=== PATIENT | male | born 1970 | race Caucasian/White ===

== ENCOUNTER 2018-04-18 13:42 | Emergency (ER) | payer OTHER ==
[~2018-04-18] VITALS: Ht 175.3 cm; Wt 79.4 kg
[~2018-04-18 13:42] MED LIST: AMOX1TAB12 PO; BUCALSEP SPRAY30 ML MM; GILTUSS LIQUID237 M1; TUSSI-PRES LIQ118 ML PO; [UNRECOGNIZED DRUG - OTHER]
== END 2018-04-18 16:18 | disposition home or self-care (01) ==
LOC: ER 13:42
DX: S05.12XA Contusion of eyeball and orbital tissues, left eye, initial encounter (principal); S01.112A Laceration without foreign body of left eyelid and periocular area, initial encounter; W18.39XA Other fall on same level, initial encounter; Y93.89 Activity, other specified; Y92.098 Other place in other non-institutional residence as the place of occurrence of the external cause; Y99.8 Other external cause status

== ENCOUNTER 2018-04-22 09:07 | Emergency (ER) | payer OTHER ==
[~2018-04-22] VITALS: Ht 172.7 cm; Wt 64.9 kg
== END 2018-04-22 11:59 | disposition home or self-care (01) ==
LOC: ER 09:07
DX: S05.12XA Contusion of eyeball and orbital tissues, left eye, initial encounter (principal); W22.8XXA Striking against or struck by other objects, initial encounter; Y93.89 Activity, other specified; Y92.89 Other specified places as the place of occurrence of the external cause; Y99.8 Other external cause status

== ENCOUNTER 2019-01-09 07:45 | Emergency (ER) | payer OTHER ==
[~2019-01-09] VITALS: Ht 180.3 cm; Wt 90.7 kg
== END 2019-01-09 11:07 | disposition home or self-care (01) ==
LOC: ER 07:45
DX: S29.012A Strain of muscle and tendon of back wall of thorax, initial encounter (principal); X50.0XXA Overexertion from strenuous movement or load, initial encounter; Y93.89 Activity, other specified; Y92.89 Other specified places as the place of occurrence of the external cause; Y99.8 Other external cause status

== ENCOUNTER 2019-03-03 00:21 | Emergency (ER) | payer OTHER ==
[~2019-03-03] VITALS: Ht 165.1 cm; Wt 54.4 kg
[2019-03-03] MEDS ORDERED: CLONAZEPAM0.5 MG PO (02:17)
[2019-03-03] MEDS ORDERED: PEDIALYTE1000 ML (02:39)
== END 2019-03-03 02:58 | disposition home or self-care (01) ==
LOC: ER 00:21
DX: F06.4 Anxiety disorder due to known physiological condition (principal); F41.0 Panic disorder [episodic paroxysmal anxiety]

== ENCOUNTER 2022-12-05 09:25 | Outpatient (CLI) | payer OTHER ==
[~2022-12-05 09:25] MED LIST changes: +CLONAZEPAM0.5 MG PO; +PEDIALYTE1000 ML
== END 2022-12-05 09:39 | disposition home or self-care (01) ==
LOC: TOM 09:25
DX: R22.1 Localized swelling, mass and lump, neck (principal)

== ENCOUNTER 2022-12-20 09:52 | Outpatient (CLI) | payer OTHER | END 2022-12-20 09:55 | disposition home or self-care (01) | LOC: SONOGRAMA 09:52 | PROVIDERS: ATTEND Pathology Anatomic Pathology & Clinical Pathology | DX: D34 Benign neoplasm of thyroid gland (principal); E04.9 Nontoxic goiter, unspecified ==

== ENCOUNTER 2023-04-12 12:23 | Outpatient (CLI) | payer OTHER | END 2023-04-12 12:31 | disposition home or self-care (01) | LOC: RAD 12:23 | DX: Z01.811 Encounter for preprocedural respiratory examination (principal) ==

== ENCOUNTER 2023-10-16 09:03 | Outpatient (CLI) | payer OTHER | END 2023-10-16 09:12 | disposition home or self-care (01) | LOC: SONOGRAMA 09:03 | PROVIDERS: ATTEND Internal Medicine Gastroenterology | DX: K82.4 Cholesterolosis of gallbladder (principal) ==

== ENCOUNTER → 2024-06-03 10:13 | Outpatient (CLI) | payer OTHER ==
[~2024-06-03 10:13] MED LIST changes: +BUSPIRONE HCL7.5 MG; +CIPRODEX OTIC7.5 ML OT; +FLONASE16 GM NASAL; +OMEPRAZOLE MAGN20 MG PO; +PEPCID AC20 MG PO; +PROBIOTIC250 MG PO; +ZYRTEC10 M3 PO
== END | disposition home or self-care (01) ==
LOC: NUCLEAR 10:00
PROVIDERS: ATTEND Internal Medicine
DX: K80.00 Calculus of gallbladder with acute cholecystitis without obstruction (principal)

== ENCOUNTER 2024-06-17 09:40 | Outpatient (CLI) | payer OTHER | END 2024-06-17 09:50 | disposition home or self-care (01) | LOC: SONOGRAMA 09:40 | PROVIDERS: ATTEND Urology | DX: N40.0 Benign prostatic hyperplasia without lower urinary tract symptoms (principal) ==

== ENCOUNTER 2024-08-07 11:53 | Emergency (ER) | payer OTHER ==
[~2024-08-07] VITALS: Ht 170.2 cm; Wt 65.8 kg
[2024-08-07 12:24] VITALS: BP 117/76; O2SAT 99
[2024-08-07 13:15] LABS: HEMATOCRIT 38.8 % (39.0-48.0); HEMOGLOBIN 13.3 g/dL (13-16.00); MEAN CORPUSCULAR HEMOGLOBIN 27.4 pg (27.00-32.0); MEAN CORPUSCULAR HGB CONC 34.3 g/dl (32.0-36.0); PLATELET COUNT 280 K/uL (150-450); RED BLOOD COUNT 4.85 M/uL (4.00-6.00)
[2024-08-07 13:47] LABS: INR 1.06; PARTIAL THROMBOPLASTIN TIME 26.1 SECONDS (22.0-34.0); PROTHROMBIN TIME 11.5 SECONDS (9.0-11.5)
== END 2024-08-07 14:42 | disposition home or self-care (01) ==
LOC: ER 11:53
PROVIDERS: Emergency Medicine
DX: R04.0 Epistaxis (principal)

== ENCOUNTER 2024-11-27 11:38 | Outpatient (CLI) | payer OTHER | END 2024-11-27 11:52 | disposition home or self-care (01) | LOC: SONOGRAMA 11:38 | PROVIDERS: ATTEND Internal Medicine Endocrinology, Diabetes & Metabolism | DX: E04.1 Nontoxic single thyroid nodule (principal); I88.9 Nonspecific lymphadenitis, unspecified ==

== ENCOUNTER 2025-06-02 08:48 | Outpatient (CLI) | payer OTHER ==
[~2025-06-02 08:48] MED LIST changes: +SYNTHROID125 MCG PO; +TRAZODONE HCL150 MG
== END 2025-06-02 08:57 | disposition home or self-care (01) ==
LOC: SONOGRAMA 08:48
PROVIDERS: ATTEND Internal Medicine Gastroenterology
DX: K80.20 Calculus of gallbladder without cholecystitis without obstruction (principal)

== ENCOUNTER 2025-06-17 07:26 | Outpatient (CLI) | payer OTHER | END 2025-06-17 07:27 | disposition home or self-care (01) | LOC: NUCLEAR 07:26 | PROVIDERS: ATTEND Internal Medicine Gastroenterology | DX: K80.20 Calculus of gallbladder without cholecystitis without obstruction (principal) ==